=== PATIENT | female | born 1945 | race Caucasian/White ===

== ENCOUNTER → 2017-08-23 | Outpatient (CLI) | payer OTHER, MEDICARE ==
--- NOTE | 2017-08-23 15:42 | REP ---
PET/CT: HISTORY: Staging, adenocarcinoma right upper lobe. No prior images are available. Report of [facility] CT study chest July 01, 2017 describes a 2.9 cm nodule in the right upper lobe medially and a few mildly enlarged mediastinal lymph nodes. Bronchoscopic biopsy positive for adenocarcinoma. TECHNIQUE: 1 hour 28 minutes following the intravenous injection of a 10.2 mCi dose of F-18 FDG, three-dimensional PET scintigraphy is acquired from the skull base to the proximal thighs. Triplanar noncontrast CT scanning is acquired through the same anatomic range for attenuation correction, and image registration with scan parameters optimized to minimize radiation exposure to the patient. PET scintigraphy and CT datasets were fused and displayed on a workstation with multiplanar and projection display capability. PET/CT FINDINGS: The right upper lobe lung lesion is hypermetabolic with maximum standard uptake value 16.2. There is no other abnormal hypermetabolic uptake within the thorax. No hypermetabolic mediastinal or hilar uptake is seen. Supraclavicular and head and neck soft tissues are unremarkable. In the abdomen and pelvis, there is normal hepatic, splenic, gastrointestinal and genitourinary FDG accumulation. No abnormal hypermetabolic uptake is seen. An inferior vena cava filter is noted in place. On the accompanying chest CT images of the right upper lobe spiculated lesion measures 3.0 cm in greatest anteroposterior dimension. No other significant lung nodule is appreciated. IMPRESSION: 3 cm right upper lobe lung mass is hypermetabolic. No other abnormal hypermetabolic uptake is seen. Signed by Shaheed Allred MD 08/23/2017 04:31 P
== END ==
LOC: M PLARAD 09:57
PROVIDERS: ATTEND Physician Assistant
DX: C34.11 Malignant neoplasm of upper lobe, right bronchus or lung (principal)
CPT/HCPCS: 78815; A9552

== ENCOUNTER → 2017-09-21 | Outpatient (CLI) | payer MEDICARE | LOC: M ONCR 10:04 | PROVIDERS: ATTEND Radiology Radiation Oncology | DX: C34.90 Malignant neoplasm of unspecified part of unspecified bronchus or lung (principal) ==